=== PATIENT | female | born 1940 | race Caucasian/White ===

== ENCOUNTER → 2019-02-12 | Outpatient (CLI) | payer MEDICARE ==
[~2019-02-12] MED LIST: DIABETES PILL; HTN MED; LORAZEPAM; TRAZODONE
[2019-02-12 17:51] LABS: Color, Urine Yellow (P-Yellow)
[2019-02-12 17:52] LABS: Appearance, Urine Cloudy (Clear); Bacteria Many /hpf; Bilirubin, Urine Neg (Neg); Blood, Urine Neg (Neg); Glucose Qualitative, Urine Neg (Normal); Ketones, Urine Neg (Neg); Leukocyte Esterase, Urine Trace (Neg); Nitrite, Urine Pos (Neg); Protein, Urine Neg (Neg); Red Blood Cells, Urine 0-2 /hpf (0-2); Specific Gravity, Urine 1.015 (1.003-1.022); Squamous Epithelial Cells Many /hpf (Few); Urobilinogen, Urine NORM (Normal)
== END | disposition home or self-care (01) ==
LOC: LAB EV 16:40
PROVIDERS: Nurse Practitioner
DX: R35.1 Nocturia (principal)
CPT/HCPCS: 81001; 87077; 87086; 87186

== ENCOUNTER → 2019-05-13 | Outpatient (CLI) | payer MEDICARE | LOC: LAB EV 13:30 → LAB SHORT 13:30 | DX: R30.9 Painful micturition, unspecified (principal) | CPT/HCPCS: 87077; 87086; 87186 ==

== ENCOUNTER → 2019-09-30 | Outpatient (CLI) | payer MEDICARE ==
[~2019-09-30] MED LIST changes: +ACET500 PO; +ACIDOPHILUS1 EAC3 PO; +ASPI81CH PO; +CALCIUM PO; +GARLIC OIL1000 MG PO; +LISI20 PO; +MAGNESIUM PO; +METF500 PO; +OXYC5 PO; +Vitamin C100 M1 PO; +ZOCOR20 MG PO
[2019-10-01 19:08] LABS: Bilirubin, Urine Neg (Neg); Blood, Urine Neg (Neg); Glucose Qualitative, Urine Neg (Neg); Ketones, Urine Neg (Neg); Leukocyte Esterase, Urine 1+ (Neg); Nitrite, Urine Neg (Neg); Protein, Urine Neg (Neg); Urobilinogen, Urine 1+ (Normal)
[2019-10-01 19:42] LABS: Appearance, Urine Hazy (Clear); Color, Urine Yellow (P-Yellow)
[2019-10-01 19:46] LABS: Bacteria Mod /hpf; Squamous Epithelial Cells Many /hpf (Few)
== END | disposition home or self-care (01) ==
LOC: LAB EV 17:15 → LAB SHORT 10-01 16:03
PROVIDERS: Physician Assistant
DX: R41.82 Altered mental status, unspecified (principal)
CPT/HCPCS: 81001; 87086

== ENCOUNTER 2020-05-01 14:00 | Emergency (ER) | payer MEDICARE, SELFPAY ==
[~2020-05-01] VITALS: Ht 170.2 cm; Wt 89.4 kg
[~2020-05-01 14:00] MED LIST changes: +ASCO500 PO; +Acidophilus1 EAC1 PO; +CEPH500 PO; +ELIQUIS5 MG PO; +GARLIC200 MG PO; +GLUCOPHAGE1000 M1 PO; +MAGNESIUM OXID500 MG PO; -METF500 PO; +TRAZ150T57 PO; +ZESTRIL40 M1 PO; -ZOCOR20 MG PO; +Zocor40 MG PO
[2020-05-01 18:41] LABS: BASOPHILS ABSOLUTE AUTO 0.02 K/mm3 (0.00-0.23); BASOPHILS PERCENT AUTO 0 % (0-2); EOSINOPHILS ABSOLUTE AUTO 0.11 K/mm3 (0.00-0.68); EOSINOPHILS PERCENT AUTO 2 % (0-6); Hematocrit 40.3 % (33.0-51.0); Hemoglobin 12.5 g/dL (11.5-16.0); IMMATURE GRAN ABSOLUTE AUTO 0.04 K/mm3 (0.00-0.10); IMMATURE GRAN PERCENT AUTO 1 % (0-1); LYMPHOCYTES ABSOLUTE AUTO 1.95 K/mm3 (0.84-5.20); LYMPHOCYTES PERCENT AUTO 27 % (21-46); MONOCYTES ABSOLUTE AUTO 0.36 K/mm3 (0.16-1.47); MONOCYTES PERCENT AUTO 5 % (4-13); Mean Corpuscular HGB 28.4 pg (26.0-34.0); Mean Corpuscular Volume 92 fL (80-100); Mean Platelet Volume 10.5 fL (9.1-12.4); NEUTROPHILS ABSOLUTE AUTO 4.79 K/mm3 (1.96-9.15); NEUTROPHILS PERCENT AUTO 66 % (41-73); NRBC ABSOLUTE 0.02 K/mm3 (0.00-0.02); NRBC Auto 0.3 /100 WBC (0.0-0.2); Platelet Count 273 K/mm3 (150-400); RDW Coefficient Variation 18.4 % (11.7-14.2); RDW Standard Deviation 60.8 fL (35.1-46.3); White Blood Cell Count 7.27 K/mm3 (4.00-11.30)
[2020-05-01 19:06] LABS: Alanine Aminotransfer (ALT/SGP 10 U/L (12-78); Albumin, Blood 3.4 g/dL (3.4-5.0); Albumin/Globulin Ratio 0.9 (0.8-1.8); Alk Phos 64 U/L (50-136); Anion Gap 6 mmol/L (6-16); Aspartate Aminotrans (AST/SGOT 13 U/L (12-37); Bilirubin, Total 0.7 mg/dL (0.1-1.0); Blood Urea Nitrogen 27 mg/dL (8-24); CO2, Blood 28 mmol/L (21-32); Calcium, Blood 9.1 mg/dL (8.5-10.1); Chloride, Blood 106 mmol/L (98-108); Globulin, Blood 3.7 g/dL (2.2-4.0); Glomerular Filtration Rate 57 (60-); Glucose, Blood 97 mg/dL (70-99); Potassium, Blood 4.6 mmol/L (3.5-5.5); Sodium, Blood 140 mmol/L (136-145); Total Protein, Blood 7.1 g/dL (6.4-8.2); Troponin I <0.015 ng/mL (0.000-0.040)
[2020-05-01] MEDS ORDERED: CALCIUM PO (19:11)
[2020-05-01] MEDS ORDERED: Colace100 MG PO (19:55)
[2020-05-01] MEDS ORDERED: HYDR1TAB94 PO (19:55)
== END 2020-05-01 20:08 | disposition home or self-care (01) ==
LOC: ER 14:00
PROVIDERS: Emergency Medicine
DX: S32.029A Unspecified fracture of second lumbar vertebra, initial encounter for closed fracture (principal); S30.0XXA Contusion of lower back and pelvis, initial encounter; S70.02XA Contusion of left hip, initial encounter; H11.32 Conjunctival hemorrhage, left eye; I25.2 Old myocardial infarction; M51.36 Other intervertebral disc degeneration, lumbar region; M47.816 Spondylosis without myelopathy or radiculopathy, lumbar region; I50.9 Heart failure, unspecified; Z79.84 Long term (current) use of oral hypoglycemic drugs; Z79.01 Long term (current) use of anticoagulants; Z79.899 Other long term (current) drug therapy; Z86.73 Personal history of transient ischemic attack (TIA), and cerebral infarction without residual deficits; W06.XXXA Fall from bed, initial encounter; Z96.642 Presence of left artificial hip joint
CPT/HCPCS: 36415; 72110; 72131; 73502; 80053; 84484; 85025; 93005; 93010; 99284-25; A9270

== ENCOUNTER 2020-05-15 18:46 | Emergency (ER) | payer MEDICARE ==
[~2020-05-15] VITALS: Ht 170.2 cm; Wt 89.4 kg
[~2020-05-15 18:46] MED LIST changes: +Colace100 MG PO; +HYDR1TAB94 PO
[2020-05-15] MEDS ORDERED: LIDO700A20 TOP (21:50)
== END 2020-05-15 21:59 | disposition home or self-care (01) ==
LOC: ER 18:46
DX: M25.551 Pain in right hip (principal); I50.9 Heart failure, unspecified; I25.2 Old myocardial infarction; Z79.899 Other long term (current) drug therapy; Z79.01 Long term (current) use of anticoagulants; Z79.84 Long term (current) use of oral hypoglycemic drugs; Z86.718 Personal history of other venous thrombosis and embolism
CPT/HCPCS: 73502; 99283-25; A9270

== ENCOUNTER 2020-07-19 16:25 | Emergency (ER) | payer MEDICARE, SELFPAY ==
[~2020-07-19] VITALS: Ht 167.6 cm; Wt 72.6 kg
[~2020-07-19 16:25] MED LIST changes: +LIDO700A20 TOP
[2020-07-19 17:24] LABS: BASOPHILS ABSOLUTE AUTO 0.01 K/mm3 (0.00-0.23); BASOPHILS PERCENT AUTO 0 % (0-2); EOSINOPHILS ABSOLUTE AUTO 0.03 K/mm3 (0.00-0.68); EOSINOPHILS PERCENT AUTO 0 % (0-6); Hematocrit 35.3 % (33.0-51.0); Hemoglobin 11.5 g/dL (11.5-16.0); IMMATURE GRAN ABSOLUTE AUTO 0.05 K/mm3 (0.00-0.10); IMMATURE GRAN PERCENT AUTO 1 % (0-1); LYMPHOCYTES ABSOLUTE AUTO 1.45 K/mm3 (0.84-5.20); LYMPHOCYTES PERCENT AUTO 19 % (21-46); MONOCYTES ABSOLUTE AUTO 0.39 K/mm3 (0.16-1.47); MONOCYTES PERCENT AUTO 5 % (4-13); Mean Corpuscular HGB 33.1 pg (26.0-34.0); Mean Corpuscular HGB Conc 32.6 g/dL (31.5-36.5); Mean Corpuscular Volume 102 fL (80-100); Mean Platelet Volume 10.5 fL (9.1-12.4); NEUTROPHILS ABSOLUTE AUTO 5.82 K/mm3 (1.96-9.15); NEUTROPHILS PERCENT AUTO 75 % (41-73); NRBC ABSOLUTE 0.02 K/mm3 (0.00-0.02); NRBC Auto 0.3 /100 WBC (0.0-0.2); Platelet Count 389 K/mm3 (150-400); RDW Coefficient Variation 19.7 % (11.7-14.2); RDW Standard Deviation 73.7 fL (35.1-46.3); Red Blood Cell Count 3.47 M/mm3 (3.80-5.20); White Blood Cell Count 7.75 K/mm3 (4.00-11.30)
[2020-07-19 17:32] LABS: Albumin/Globulin Ratio 0.8 (0.8-1.8); Bilirubin, Total 0.8 mg/dL (0.1-1.0); Bun/Creatinine Ratio 26.1 (12.0-20.0); Calcium, Blood 9.3 mg/dL (8.5-10.1); Creatinine, Blood 1.11 mg/dL (0.40-1.00); Globulin, Blood 3.8 g/dL (2.2-4.0); Potassium, Blood 4.4 mmol/L (3.5-5.5); Total Protein, Blood 6.8 g/dL (6.4-8.2)
[2020-07-19 17:50] LABS: Creatine Kinase MB 2.3 ng/mL (0.0-3.6)
[2020-07-19 18:07] LABS: Source, Urine Clean Catch
[2020-07-19 18:15] LABS: Appearance, Urine Clear (Clear); Bilirubin, Urine Neg (Neg); Blood, Urine 3+ (Neg); Color, Urine Amber (P-Yellow); Glucose Qualitative, Urine Neg (Neg); Ketones, Urine 2+ (Neg); Leukocyte Esterase, Urine Neg (Neg); Nitrite, Urine Neg (Neg); Protein, Urine 1+ (Neg); Urobilinogen, Urine 1+ (Normal)
[2020-07-19 18:34] LABS: Bacteria Few /hpf; Squamous Epithelial Cells Rare /hpf (Few)
[2020-07-19 18:35] LABS: Amorphous Light (0-Heavy); Transitional Epithelial Cells Rare /hpf (0-Rare)
== END 2020-07-19 20:15 | disposition home or self-care (01) ==
LOC: ER 16:25
PROVIDERS: Physician Assistant
DX: S00.83XA Contusion of other part of head, initial encounter (principal); S40.011A Contusion of right shoulder, initial encounter; M25.552 Pain in left hip; I25.2 Old myocardial infarction; I50.9 Heart failure, unspecified; E78.5 Hyperlipidemia, unspecified; I11.0 Hypertensive heart disease with heart failure; W17.89XA Other fall from one level to another, initial encounter
CPT/HCPCS: 36415; 51701; 70450; 73502; 80053; 81001; 82550; 82553; 85025; 93005; 93010; 99285-25; J7030

== ENCOUNTER → 2021-02-21 | Outpatient (CLI) | payer MEDICARE ==
[2021-02-21 15:53] LABS: Source, Urine Clean Catch
[2021-02-21 16:09] LABS: Appearance, Urine Cloudy (Clear); Color, Urine Yellow (P-Yellow)
[2021-02-21 16:10] LABS: Bacteria Many /hpf; Bilirubin, Urine Neg (Neg); Blood, Urine Trace (Neg); Glucose Qualitative, Urine Neg (Normal); Ketones, Urine Neg (Neg); Leukocyte Esterase, Urine 2+ (Neg); Nitrite, Urine Neg (Neg); Protein, Urine Neg (Neg); Specific Gravity, Urine 1.015 (1.003-1.022); Squamous Epithelial Cells Few /hpf (Few); Urobilinogen, Urine NORM (Normal); White Blood Cells, Urine 25-50 /hpf (0-5)
== END ==
LOC: LAB SHORT 14:30 → LAB 14:30
PROVIDERS: Physician Assistant
DX: R30.9 Painful micturition, unspecified (principal); R35.0 Frequency of micturition
CPT/HCPCS: 81001; 87086

== ENCOUNTER → 2021-03-30 | Outpatient (CLI) | payer MEDICARE | END | disposition home or self-care (01) | LOC: LAB SHORT 15:49 → LAB 15:49 | DX: R35.0 Frequency of micturition (principal) | CPT/HCPCS: 87086 ==

== ENCOUNTER → 2021-06-22 | Outpatient (CLI) | payer MEDICARE ==
[2021-06-22 19:02] LABS: Creatinine, Urine Random 85.3 mg/dL (27.00-270.00); Microalb/Creat Ratio UR, Rand 281.36 mg/g (0.000-30.000)
== END | disposition home or self-care (01) ==
LOC: LAB SHORT 15:30
PROVIDERS: Family Medicine
DX: E11.9 Type 2 diabetes mellitus without complications (principal)
CPT/HCPCS: 82043; 82570

== ENCOUNTER 2022-03-21 12:37 | Inpatient (IN) | payer MEDICARE ==
[~2022-03-21] VITALS: Ht 172.7 cm; Wt 95.0 kg
[~2022-03-21 12:37] MED LIST changes: -LISI20 PO
[2022-03-21 13:40] LABS: Hematocrit 45.2 % (33.0-51.0); Hemoglobin 14.8 g/dL (11.5-16.0); Mean Corpuscular HGB Conc 32.7 g/dL (31.5-36.5); Mean Corpuscular Volume 89 fL (80-100); Mean Platelet Volume 11.6 fL (9.1-12.4); NRBC ABSOLUTE 0.02 K/mm3 (0.00-0.02); NRBC Auto 0.1 /100 WBC (0.0-0.2); Platelet Count 175 K/mm3 (150-400); RDW Coefficient Variation 15.4 % (11.7-14.2); RDW Standard Deviation 49.7 fL (35.1-46.3); White Blood Cell Count 19.73 K/mm3 (4.00-11.30)
[2022-03-21 13:49] LABS: Creatine Kinase MB 43.1 ng/mL (0.0-3.6)
[2022-03-21 13:59] LABS: Albumin, Blood 3.1 g/dL (3.4-5.0); Albumin/Globulin Ratio 0.8 (0.8-1.8); Bilirubin, Total 1.1 mg/dL (0.1-1.0); Bun/Creatinine Ratio 14.6 (12.0-20.0); Calcium, Blood 8.6 mg/dL (8.5-10.1); Creatine Kinase MB Index 0.7 (0.0-4.0); Creatinine, Blood 1.78 mg/dL (0.40-1.00); Globulin, Blood 3.7 g/dL (2.2-4.0); Potassium, Blood 4.4 mmol/L (3.5-5.5); Total Protein, Blood 6.8 g/dL (6.4-8.2)
[2022-03-21 14:19] LABS: Source, Urine Clean Catch
[2022-03-21 14:35] LABS: Appearance, Urine Cloudy (Clear); Blood, Urine 3+ (Neg); Color, Urine Yellow (P-Yellow); Glucose Qualitative, Urine Neg (Neg); Ketones, Urine 2+ (Neg); Leukocyte Esterase, Urine 2+ (Neg); Nitrite, Urine Neg (Neg); Protein, Urine 3+ (Neg); Urobilinogen, Urine 2+ (Normal)
[2022-03-21 14:39] LABS: BAND PERCENT MAN 3 % (0-8); BASOPHILS PERCENT MAN 0 % (0-2); EOSINOPHILS PERCENT MAN 0 % (0-6); LYMPHOCYTES ABSOLUTE MAN 1.38 K/mm3 (0.84-5.20); LYMPHOCYTES PERCENT MAN 7 % (21-46); METAMYELOCYTE ABSOLUTE MAN 0.19 K/mm3 (0.00-0.00); METAMYELOCYTE PERCENT MAN 1 % (0-0); MONOCYTES ABSOLUTE MAN 1.18 K/mm3 (0.16-1.47); MONOCYTES PERCENT MAN 6 % (4-13); NEUTROPHILS ABSOLUTE MAN 16.96 K/mm3 (1.96-9.15); SEG NEUTROPHILS PERCENT MAN 83 % (41-73); TOTAL CELLS COUNTED 100
[2022-03-21 16:19] LABS: Bilirubin, Urine 1+ (Neg)
[2022-03-21] MEDS ORDERED: JANTOVEN5 M2 PO (16:19)
[2022-03-21 16:21] LABS: White Blood Cells, Urine 25-50 /hpf (0-5)
[2022-03-21 16:23] LABS: Bacteria Many /hpf; Squamous Epithelial Cells Rare /hpf (Few)
[2022-03-21 20:28] LABS: International Normalized Ratio 1.94; Prothrombin Time Results 19.5 Sec (9.7-11.5)
[2022-03-21 22:10] LABS: Eosinophils-Raw #,Urine 0
[2022-03-21 22:11] LABS: White Blood Cells Urine 25-50 /hpf (0-5)
--- NOTE | 2022-03-22 03:12 | NUR ---
Patients BP continues to trend down, contacted resident and order for 500ml NS bolus and recheck. Patient neuro status unchanged, still having auditory and visual hallucinations.
--- NOTE | 2022-03-22 05:01 | NUR ---
PATIENTS BP TEMPORARILY RESPONDED TO BOLUS THEN BEGAN TRENDING DOWN WITH MAP IN HIGH 50'S TO LOW 60'S. RESIDENT CONTACTED AND ORDER FOR TRANSFER TO ICU WITH LEVOPHED GTT. NEW 20G IV PLACED IN RAC.
[2022-03-22 05:14] LABS: Albumin, Blood 2.4 g/dL (3.4-5.0); Albumin/Globulin Ratio 0.8 (0.8-1.8); Bilirubin, Total 0.9 mg/dL (0.1-1.0); Bun/Creatinine Ratio 15.8 (12.0-20.0); Calcium, Blood 7.3 mg/dL (8.5-10.1); Creatinine, Blood 2.28 mg/dL (0.40-1.00); Globulin, Blood 3.1 g/dL (2.2-4.0); Potassium, Blood 4.9 mmol/L (3.5-5.5); Total Protein, Blood 5.5 g/dL (6.4-8.2)
[2022-03-22 05:20] LABS: BASOPHILS ABSOLUTE AUTO 0.02 K/mm3 (0.00-0.23); BASOPHILS PERCENT AUTO 0 % (0-2); EOSINOPHILS PERCENT AUTO 0 % (0-6); Hematocrit 36.9 % (33.0-51.0); Hemoglobin 12.4 g/dL (11.5-16.0); IMMATURE GRAN ABSOLUTE AUTO 0.14 K/mm3 (0.00-0.10); IMMATURE GRAN PERCENT AUTO 1 % (0-1); LYMPHOCYTES ABSOLUTE AUTO 1.44 K/mm3 (0.84-5.20); LYMPHOCYTES PERCENT AUTO 10 % (21-46); MONOCYTES ABSOLUTE AUTO 0.84 K/mm3 (0.16-1.47); MONOCYTES PERCENT AUTO 6 % (4-13); Mean Corpuscular HGB 29.4 pg (26.0-34.0); Mean Corpuscular HGB Conc 33.6 g/dL (31.5-36.5); Mean Corpuscular Volume 87 fL (80-100); Mean Platelet Volume 11.4 fL (9.1-12.4); NEUTROPHILS ABSOLUTE AUTO 12.77 K/mm3 (1.96-9.15); NEUTROPHILS PERCENT AUTO 84 % (41-73); Platelet Count 173 K/mm3 (150-400); RDW Coefficient Variation 15.5 % (11.7-14.2); RDW Standard Deviation 48.5 fL (35.1-46.3); Red Blood Cell Count 4.22 M/mm3 (3.80-5.20); White Blood Cell Count 15.21 K/mm3 (4.00-11.30)
[2022-03-22 05:27] LABS: International Normalized Ratio 2.3
--- NOTE | 2022-03-22 05:40 | NUR ---
Assumed care of patient at 2223, A/O to self, location only at admit. This changed slightly during this shift to being only A/O to self and thinking she was "at the fair". Patient is very talkative. Pupils 3mm and sluggish bilaterally. Neuro's intact otherwise. Patient is on 3-5L NC with nonproductive weak cough, LS dim t/o. Patient is NPO until ST eval as patient choked on water in ED and self admits to not feeling safe swallowing. Afib on tele 80-90's, denies CP/pressure. See previous RN notes regarding BP. Levophed started in PCU as patient is ICU status and awaiting bed. BLE 1+ pitting edema, RFA nonpitting edema. Cloudy julian urine in espana. Will report to ICU nurse.
[2022-03-22 05:46] LABS: Prothrombin Time Results 22.9 Sec (9.7-11.5)
--- NOTE | 2022-03-22 06:02 | NUR ---
FAMILY UPDATE CALLED PT'S SON (WALKER) TO UPDATE WITH CHANGE TO ICU STATUS AND TRANSFER TO ICU-01. UPDATED PRIMARY RN SANTIAGO.
--- NOTE | 2022-03-22 09:45 | NUR ---
AM NOTE... ASSUMED CARE OF PT AT 0700 THE PT IS A&O TO SELF ONLY, SHE DOES NOT FOLLOW DIRECTIONS AND IS UNABLE TO FOLLOW CONVERSATION. SHE REFUSES TO FOLLOW DIRECTIONS FOR NEURO CHECKS SUCH HAND MILLED LUMBER GRADER, LEG STRENGTH OR PUPIL SIZE/REACTIONS. SHE WAS ON 1MCG OF LEVOPHED AT THE START OF THIS SHIFT BUT THIS WAS STOPPED D/T IMPROVING MAPS >65. SHE CONTINUES ON 4L NC WITH O2 SATS >90% L/S DIM T/O PT REFUSES TO TAKE DEEP BREATHS AND STOP TALKING DURING ASSESSMENT. BT PRESENT AND HYPOACTIVE, ABD SOFT TO PALPATION. THE PT'S GARCIA IS PATENT AND DRAINING MARIEL CLOUDY URINE TO GRAVITY. THE PT HAS MANY SCRAPES AND BRUISES, PICTURES IN THE CHART. THE PT WAS PLACED IN SOFT WRIST RESTRAINTS D/T ATTEMPTING TO PULL OUT HER GARCIA AND IVs. WILL CONTINUE TO MONITOR.
[2022-03-22 12:41] LABS: International Normalized Ratio 1.4
[2022-03-22 13:20] LABS: Prothrombin Time Results 14.4 Sec (9.7-11.5)
--- NOTE | 2022-03-22 17:58 | NUR ---
SHIFT SUMMARY.... NO ACUTE NEGATIVE CHANGES NOTED THIS SHIFT. THE PT'S O2 HAS BEEN TITRATED OFF TO RA WITH O2 SATS >92%. THE PT CONTINUES TO BE NPO. SHE CONTINUES TO BE VERY CONFUSED AND WILL NOT FOLLOW ANY COMMANDS AND IS NOT RE-DIRECTABLE. THE PT HAS BEEN OFF OF ANY PRESSORS SINCE THE START OF THIS SHIFT. SHE HAS BEEN TURNED Q2 HRS. THE PT'S GARCIA IS PATENT AND DRAINING CLOUDY, FOUL SMELLING MARIEL URINE TO GRAVITY. WILL CONTINUE TO MONTIOR UNTIL REPORT IS GIVEN TO ONCOMING RN.
--- NOTE | 2022-03-22 21:30 | NUR ---
ASSUMED CARE PT IS A&O X1-2. PT IS ABLE TO STATE BIRTHDAY W/ DIFFICULTY AND INTERMITTENTLY FORGETS QUESTIONS THAT SHE HAS ANSWERED. PERLLA, STAYS AWAKE, AND ASKS FREQUENT QUESTIONS. PT IS NOT AWARE OF WHERE SHE IS AT OR WHAT HAPPENED TO HER EVEN WHEN REMINDED. SPO2 >92% ON RA; MAP >65. NO C/O'S OF PAIN UNLESS BEING REPOSITIONED.
[2022-03-23 05:13] LABS: BASOPHILS ABSOLUTE AUTO 0.02 K/mm3 (0.00-0.23); BASOPHILS PERCENT AUTO 0 % (0-2); EOSINOPHILS ABSOLUTE AUTO 0.07 K/mm3 (0.00-0.68); EOSINOPHILS PERCENT AUTO 1 % (0-6); Hematocrit 32.7 % (33.0-51.0); Hemoglobin 10.8 g/dL (11.5-16.0); IMMATURE GRAN ABSOLUTE AUTO 0.22 K/mm3 (0.00-0.10); IMMATURE GRAN PERCENT AUTO 2 % (0-1); LYMPHOCYTES ABSOLUTE AUTO 1.16 K/mm3 (0.84-5.20); LYMPHOCYTES PERCENT AUTO 10 % (21-46); MONOCYTES ABSOLUTE AUTO 0.62 K/mm3 (0.16-1.47); MONOCYTES PERCENT AUTO 6 % (4-13); Mean Corpuscular HGB 29.1 pg (26.0-34.0); Mean Corpuscular Volume 88 fL (80-100); Mean Platelet Volume 10.9 fL (9.1-12.4); NEUTROPHILS ABSOLUTE AUTO 9.17 K/mm3 (1.96-9.15); NEUTROPHILS PERCENT AUTO 81 % (41-73); Platelet Count 182 K/mm3 (150-400); RDW Coefficient Variation 15.8 % (11.7-14.2); RDW Standard Deviation 49.3 fL (35.1-46.3); Red Blood Cell Count 3.71 M/mm3 (3.80-5.20); White Blood Cell Count 11.26 K/mm3 (4.00-11.30)
--- NOTE | 2022-03-23 05:29 | NUR ---
SHIFT SUMMARY PT IS A&O X 1-2. DIFFICULT TO REORIENT AND FORGETFUL ABOUT LOCATION/SITUATION. PT WAS VERY CONVERSATIONAL T/O NIGHT AND DOES NOT COOPERATE W/ CARE VERY WELL. PT'S MOOD IS VERY LABILE W/ OCCASIONAL MOMENTS OF CRYING. LESS SOMNULENT THAN ASSUMED CARE NOTE ASSESSMENT. THERE WAS NO INCREASED CONFUSION OR OBVIOUS DECREASE IN NEURO THIS SHIFT. GARCIA PATENT AND DRAINING TO GRAVITY.
[2022-03-23 05:33] LABS: International Normalized Ratio 1.1; Prothrombin Time Results 11.5 Sec (9.7-11.5)
[2022-03-23 06:09] LABS: Albumin, Blood 2.1 g/dL (3.4-5.0); Anion Gap 7 mmol/L (6-16); Blood Urea Nitrogen 32 mg/dL (8-24); Bun/Creatinine Ratio 30.5 (12.0-20.0); CO2, Blood 22 mmol/L (21-32); Calcium, Blood 6.9 mg/dL (8.5-10.1); Chloride, Blood 116 mmol/L (98-108); Creatinine, Blood 1.05 mg/dL (0.40-1.00); Glomerular Filtration Rate 53 (60-); Glucose, Blood 94 mg/dL (70-99); Magnesium, Blood 1.1 mg/dL (1.6-2.4); Phosphorus, Blood 2.4 mg/dL (2.5-4.9); Sodium, Blood 145 mmol/L (136-145); Vancomycin, Random 7.7 ug/mL
--- NOTE | 2022-03-23 07:00 | NUR ---
ASSUME CARE: I have assumed care of this patient.
--- NOTE | 2022-03-23 11:22 | NUR ---
PROVIDER PHONE CALL: Telephone order do discontinue q1h neuro checks. Will redraw mag and phos levels tomorrow AM.
--- NOTE | 2022-03-23 17:33 | NUR ---
SHIFT/TRANSFER SUMMARY: report given to DUCK OPERATOR. Pt to be taken to PCU 12 from ICU. NEURO: pt alert and confused. she worked with pt to transfer into chair for a short time. RESP: clear/dim on RA CARDS: afib 90-100. very brief periods of bradycardia while sleeping GI/: no BM today. espana draining to gravity. NPO with frequent oral care per pt request. SKIN: no new breakdown noted. Skin very fragile PSYCH/SOCIAL: daughter at bedside throughout the day. pt irritable with care and requires much coaxing with ADLs.
--- NOTE | 2022-03-23 20:57 | NUR ---
ASSUMPTION OF CARE THIS RN ASSUMED CARE OF PATIENT AT 1900. REPORT TAKEN FROM LAURA RN. PATIENT WITH STABLE VITALS AT TIME OF SHIFT CHANGE. AFIB WITH HR 90'S. PATIENT ONLY REPORTING BACK PAIN. MEDICATED PER EMAR. PATIENT ALERT AND ORIENTED FULLY WITH TANGENTIAL SPEECH. PATIENT KOI. REPOSITIONING Q2HRS. CBG CHECKS Q6HRS D/T NPO STATUS. PATIENT TO BE REEVALUATED WITH SPEECH THERAPY IN THE AM REPORTED BY PREVIOUS RN. PATIENT DOES FOLLOW COMMANDS BUT REQUIRES STAFF AND THIS RN TO CONTINUE TO REMIND PATIENT OF THE TASK. PATIENT WITH D5 AND NS INFUSING PER EMAR. SCD'S ON BILATERAL LOWER CALVES. PATIENT IS ABLE TO MAKE NEEDS KNOWN. BED IN LOWEST POSITION AND CALL LIGHT WITHIN REACH.
--- NOTE | 2022-03-24 05:05 | NUR ---
SHIFT SUMMARY PT CONTINUES TO BE ALERT AND ORIENTED X4. CHIGNIK LAGOON. PATIENT BECAME AGITATED WITH THIS RN WHILE PATIENT WAS ATTEMPTING TO GET OUT OF BED AND THREW ORAL SPONGE AT THIS RN. PATIENT BEGAN YELLING AT THIS RN AND OTHER STAFF. NOT REDIRECTABLE, CONTINUING TO TRY TO GET OUT OF BED. MEDICATED PER EMAR. PATIENT PLEASANT AFTER THIS RN RETURNED TO ROOM AFTER 20 MINUTES. VITALS STABLE. DRESSINGS CHANGED AND C/D/I. SCDS IN PLACE. INFUSING D5/NS PER EMAR. CBG CHECKED Q6HRS. REPOSITIONING Q2HRS. EGG CRATE FOAM PLACED ON PATIENT'S MATTRESS. GARCIA CATHETER PATENT AND DRAINING VIA GRAVITY. THIS RN WILL CONTINUE TO MONITOR UNTIL SHIFT CHANGE AT 0700
[2022-03-24 07:36] LABS: Hemoglobin 10.9 g/dL (11.5-16.0)
[2022-03-24 07:37] LABS: Anion Gap 6 mmol/L (6-16); Blood Urea Nitrogen 18 mg/dL (8-24); Bun/Creatinine Ratio 24.6 (12.0-20.0); CO2, Blood 22 mmol/L (21-32); Calcium, Blood 6.7 mg/dL (8.5-10.1); Chloride, Blood 119 mmol/L (98-108); Creatinine, Blood 0.73 mg/dL (0.40-1.00); Glomerular Filtration Rate 82 (60-); Glucose, Blood 107 mg/dL (70-99); Magnesium, Blood 1.3 mg/dL (1.6-2.4); Phosphorus, Blood 1.6 mg/dL (2.5-4.9); Potassium, Blood 3.7 mmol/L (3.5-5.5); Sodium, Blood 147 mmol/L (136-145); Vancomycin, Trough 12.9 ug/mL (5.0-10.0)
--- NOTE | 2022-03-24 18:24 | NUR ---
SHIFT SUMMARY; ASSUMED CARE AT 0700. A/A/OX3 DURING SHIFT. PERIODS OF SWATTING AT STAFF AND YELLING WHEN ATTEMPTING TO REPOSITION. DAUGHTER AT BEDSIDE DURING SHIFT. PT TALKS ALL DAY WITH VERY LITTLE BREAKS IN A CHILDISH DEMENOR APPEARS IN A MANIC TYPE STATE. VERY DIFFICULT TO HAVE CONVERSATIONS WITH DOESN'T STOP TALKING. GARCIA CATH IN PLACE. BRUISES, SCRAPES T/O BODY. YEAST TO BREAST AREA, BILATERAL SCUDS. WORKED WITH PT/OT/ST. CLEARED FOR [facility] SOFT DIET TODAY. EATS SMALL AMOUNT OF FOOD, STATES NOT ENOUGH SALT ON IT. CLINIMIX STARTED AT 50ML/HR TODAY. PUPILS PERRL, ANSWERS QUESTIONS APPROPRIATLY IF CAN GET TO LISTEN TO QUESTIONS. Q2 TURNS, NO ACUTE MEDICAL CHANGES DURING SHIFT.
[2022-03-25 03:27] LABS: BASOPHILS ABSOLUTE AUTO 0.03 K/mm3 (0.00-0.23); BASOPHILS PERCENT AUTO 0 % (0-2); EOSINOPHILS ABSOLUTE AUTO 0.26 K/mm3 (0.00-0.68); EOSINOPHILS PERCENT AUTO 4 % (0-6); Hematocrit 32.7 % (33.0-51.0); Hemoglobin 10.8 g/dL (11.5-16.0); IMMATURE GRAN ABSOLUTE AUTO 0.26 K/mm3 (0.00-0.10); IMMATURE GRAN PERCENT AUTO 4 % (0-1); LYMPHOCYTES ABSOLUTE AUTO 1.16 K/mm3 (0.84-5.20); LYMPHOCYTES PERCENT AUTO 16 % (21-46); MONOCYTES ABSOLUTE AUTO 1.07 K/mm3 (0.16-1.47); MONOCYTES PERCENT AUTO 15 % (4-13); Mean Corpuscular HGB 29.7 pg (26.0-34.0); Mean Corpuscular Volume 90 fL (80-100); NEUTROPHILS ABSOLUTE AUTO 4.52 K/mm3 (1.96-9.15); NEUTROPHILS PERCENT AUTO 62 % (41-73); Platelet Count 165 K/mm3 (150-400); RDW Coefficient Variation 15.9 % (11.7-14.2); RDW Standard Deviation 51.3 fL (35.1-46.3); Red Blood Cell Count 3.64 M/mm3 (3.80-5.20)
[2022-03-25 04:14] LABS: Albumin/Globulin Ratio 0.7 (0.8-1.8); Bilirubin, Total 0.5 mg/dL (0.1-1.0); Bun/Creatinine Ratio 25.4 (12.0-20.0); Calcium, Blood 7.4 mg/dL (8.5-10.1); Creatinine, Blood 0.67 mg/dL (0.40-1.00); Globulin, Blood 2.9 g/dL (2.2-4.0); Magnesium, Blood 1.7 mg/dL (1.6-2.4); Phosphorus, Blood 1.8 mg/dL (2.5-4.9); Potassium, Blood 3.9 mmol/L (3.5-5.5); Total Protein, Blood 4.9 g/dL (6.4-8.2)
--- NOTE | 2022-03-25 05:59 | NUR ---
SHIFT SUMMARY ASSUMED CARE OF PT AT 1900. PT IS ALERT AND ORIENTED BUT VERY TALKATIVE. PT DOES NOT LIKE TO BE INTERUPTED WHEN TELLING A STORY AND WILL TALK OVER NURSE. PT CALLED OUT AND TALKED TO SELF UNTIL SHE SELF SOOTHED TO SLEEP. HEART SOUNDS AFIB. LUNG SOUNDS DIMINISHED AT BASES. PT C/O SOB WHILE BEING CHANGED AND REQUESTED O2. PT REMAINED ON 2L NC WHILE SLEEPING. PT HAD GARCIA DRAINING. PT COMPLAINED ABOUT NOT BEING ABLE TO GET UP THIS EVENING. PT HAS A SMALL OPEN SORE INBETWEEN BUTTOCK. MEPILEX CHANGED AND PT REPOSITIONED TO SIDE. ROBERTO SAW PT AT AROUND 2200, ASKED FOR LABS EARLY AND TO BE CALLED WITH RESULTS. ORDERED MEDS ACCORDINGLY AND CHANGED PT TO MED STATUS WITH TELE.
--- NOTE | 2022-03-25 18:13 | NUR ---
SHIFT SUMMARY; ASSUMED CARE AT 0700, A/A/OX4 DURING SHIFT. CONTINUES TO YELL OUT AND SWAT AT STAFF WITH CARE. BOUNDARIES GIVEN TO PT REGARDING TREATMENT OF STAFF. PT YELLS AT THIS RN THAT I DO NOT CARE ABOUT HER. DAUGHTERS AT BEDSIDE AND STATE PT APPEARS TO BE AT HER BASELINE, STATES SHE HAS "BEEN THIS WAY HER WHOLE LIFE". MULTIPLE BRUISES IN DIFFERENT STAGES OF HEALING THROUGHOUT BODY. MEPILEX ON COCCYX FOR PREVENTATIVE, SCDS BILATERALLY, GARCIA IN PLACE DRAINING CLEAR YELLOW URINE. BED BATH AND LINWOOD CARE TODAY. YEAST UNDER BREASTS AND PANUS, DIFFICULT TO ASSESS DUE TO TALKING OVER NURSE AND DOCTORS, DOES NOT APPEAR TO HEAR QUESTIONS ASKED WON'T STOP TALKING. MOVES ARMS BILATERALLY, LEGS WEAK AND DOESN'T APPEAR TO TRY AND MOVE THEM. VSS, NO ACUTE MEDICAL CHANGES, WILL CONTINUE TO MONITOR AND TREAT UNTIL CHANGE OF SHIFT.
--- NOTE | 2022-03-25 20:31 | NUR ---
THIS RN GIVES REPORT TO MED FLOOR RN.
[2022-03-26] MEDS ORDERED: Oxybutynin Chlo15 MG PO (00:15)
--- NOTE | 2022-03-26 05:12 | NUR ---
PATIENT ARRIVED ON UNIT FROM PCU AT 2105 ON 01/23/23. PATIENT ALERT BUT COMBATIVE WITH STAFF. REARED FIST IF SHE WAS GOING TO [facility]CH [place] F[facility]IS. WORDS MUMBLED, TALKATIVE, AND GARBLED AT TIMES. PATIENT MENTATION WAXES AND WANES. PATIENT ASKED ME TO REWRITE HER NAME ON THE BOARD BECAUSE SHE DID NOT LIKE MY PENMONSHIP, I EXPLAINED THAT WAS THE BEST I COULD DO AND THEN SHE CONTINUOUSLY INSULTED ME IN A MANNER OF ANGER. PATIENT MEDICATED FOR AGITATION PER EMAR. PATIENT CAME WITH ALL BELONGINS AND BELONGINGS WERE UNPACKED FOR PATIENT. PATIENT ALERT, CONFUSED, TALKS NONSENSICALLY, RAMBLES, MUMBLES, ROOM AIR, BEDBOUND, BRUSING AND SCABS ALL OVER BODY, AFIB CONTROLLED ON TELE, GARCIA CATHETER, BEDPAN FOR BM, NICK POWERGLIDE FLUSHED AND SALINE LOCKED. PATIENT SLEPT WELL THROUGH SHIFT.
[2022-03-26 05:20] LABS: BASOPHILS ABSOLUTE AUTO 0.04 K/mm3 (0.00-0.23); BASOPHILS PERCENT AUTO 1 % (0-2); EOSINOPHILS ABSOLUTE AUTO 0.24 K/mm3 (0.00-0.68); EOSINOPHILS PERCENT AUTO 4 % (0-6); Hematocrit 33.2 % (33.0-51.0); Hemoglobin 10.9 g/dL (11.5-16.0); IMMATURE GRAN ABSOLUTE AUTO 0.28 K/mm3 (0.00-0.10); IMMATURE GRAN PERCENT AUTO 4 % (0-1); LYMPHOCYTES ABSOLUTE AUTO 1.34 K/mm3 (0.84-5.20); LYMPHOCYTES PERCENT AUTO 21 % (21-46); MONOCYTES ABSOLUTE AUTO 1.01 K/mm3 (0.16-1.47); MONOCYTES PERCENT AUTO 16 % (4-13); Mean Corpuscular HGB 29.5 pg (26.0-34.0); Mean Corpuscular HGB Conc 32.8 g/dL (31.5-36.5); Mean Corpuscular Volume 90 fL (80-100); Mean Platelet Volume 11.1 fL (9.1-12.4); NEUTROPHILS ABSOLUTE AUTO 3.54 K/mm3 (1.96-9.15); NEUTROPHILS PERCENT AUTO 55 % (41-73); Platelet Count 198 K/mm3 (150-400); RDW Coefficient Variation 15.9 % (11.7-14.2); RDW Standard Deviation 51.1 fL (35.1-46.3); Red Blood Cell Count 3.69 M/mm3 (3.80-5.20); White Blood Cell Count 6.45 K/mm3 (4.00-11.30)
[2022-03-26 05:55] LABS: Albumin/Globulin Ratio 0.7 (0.8-1.8); Bilirubin, Total 0.5 mg/dL (0.1-1.0); Bun/Creatinine Ratio 24.1 (12.0-20.0); Calcium, Blood 7.9 mg/dL (8.5-10.1); Creatinine, Blood 0.75 mg/dL (0.40-1.00); Magnesium, Blood 1.5 mg/dL (1.6-2.4); Phosphorus, Blood 2.2 mg/dL (2.5-4.9); Potassium, Blood 4.2 mmol/L (3.5-5.5)
--- NOTE | 2022-03-26 18:23 | NUR ---
SHIFT SUMMARY: PATIENT WAS LETHARGIC BEGINNING OF SHIFT. RESPONDS TO VERBAL STIMULI. PATIENT HAD SLEPT FOR MOST OF THE DAY AND WOKE UP AROUND 1400. CALM, PLEASANT, AND COOPERATIVE c CARE. Q2 TURN. GARCIA PATENT DRAINING c YELLOW URINE TO GRAVITY. ATTENDS CHANGED AND CATHCARE DONE. VITAL SIGNS REVIEWED. PATIENT RECEIVED OT DOSE OF IV SODIUM PHOS AND OT IV LASIX THIS SHIFT. PATIENT DAUGHTER MILTON VELAZCO IS REQUESTING PATIENT REHAB PLACEMENT IN [place]. REASSURE DAUGHTER THIS RN TO PASS THIS REQUEST TO THE REST OF HEALTHCARE TEAM. DAUGHTER LISTED 3 SKILLED FACILITY CLOSES TO WERE THE DAUGHTER LIVE. THE LIST WAS IN FRONT OF PATIENT CHART. CALL LIGHT IN REACH.
[2022-03-26 19:08] LABS: THROMBIN TIME 17.1 sec (0.0-23.0)
[2022-03-27 05:11] LABS: Hematocrit 33.8 % (33.0-51.0); Hemoglobin 11.1 g/dL (11.5-16.0)
--- NOTE | 2022-03-27 06:34 | NUR ---
DR MEJIA GAVE VERBAL ORDER FOR 20 MG PO LASIX QD
--- NOTE | 2022-03-27 06:36 | NUR ---
PATIENT RESTING IN BED
[2022-03-27 06:43] LABS: Magnesium, Blood 1.2 mg/dL (1.6-2.4)
[2022-03-27 06:50] LABS: Anion Gap 5 mmol/L (6-16); Blood Urea Nitrogen 19 mg/dL (8-24); Bun/Creatinine Ratio 24.4 (12.0-20.0); CO2, Blood 26 mmol/L (21-32); Chloride, Blood 110 mmol/L (98-108); Creatinine, Blood 0.78 mg/dL (0.40-1.00); Glomerular Filtration Rate 76 (60-); Glucose, Blood 99 mg/dL (70-99); Phosphorus, Blood 2.5 mg/dL (2.5-4.9); Sodium, Blood 141 mmol/L (136-145)
--- NOTE | 2022-03-28 04:40 | NUR ---
Shift Summary Pt AOx3-4, speaks slow and sometimes mumbled when tired. Can be very demanding, including interrupting care so she can speak for a long time. Turning is painful and frustrating for pt who gets angry and combatitive with staff. Q6 blood sugars fall in the 90-99 range. Briones patent and draining to gravity, used bed dukes for BM. Slept well t/o the night, VSS.
[2022-03-28 08:36] LABS: Hematocrit 35.8 % (33.0-51.0); Hemoglobin 11.6 g/dL (11.5-16.0)
[2022-03-28 09:01] LABS: Anion Gap 4 mmol/L (6-16); Blood Urea Nitrogen 20 mg/dL (8-24); Bun/Creatinine Ratio 24.1 (12.0-20.0); CO2, Blood 28 mmol/L (21-32); Calcium, Blood 8.1 mg/dL (8.5-10.1); Chloride, Blood 107 mmol/L (98-108); Creatinine, Blood 0.83 mg/dL (0.40-1.00); Glomerular Filtration Rate 70 (60-); Glucose, Blood 96 mg/dL (70-99); Magnesium, Blood 1.4 mg/dL (1.6-2.4); Phosphorus, Blood 3.2 mg/dL (2.5-4.9); Potassium, Blood 3.8 mmol/L (3.5-5.5); Sodium, Blood 139 mmol/L (136-145)
[2022-03-28] MEDS ORDERED: ACET325 PO (12:45)
[2022-03-28] MEDS ORDERED: QUET25 PO ×2 (12:46)
[2022-03-28] MEDS ORDERED: FURO20 PO (12:46)
[2022-03-28 14:45] LABS: Influenza A, PCR NEGATIVE (NEGATIVE); Influenza B, PCR NEGATIVE (NEGATIVE); Resp Syncytial Virus, PCR NEGATIVE (NEGATIVE); SARS-Cov-2 (COVID-19) PCR, MMC NEGATIVE (NEGATIVE)
--- NOTE | 2022-03-28 16:31 | NUR ---
Received bedside report from ongoing nurse. Pt slept well over night. Pt asleep in the bed. Pt is very demanding today. Pt did not want speech therapy, occupational therapy to help today. Pt is alert to self and can answer some yes and no question, but gets very distracted. Pt accepted to nursing facility in [place].
--- NOTE | 2022-03-29 03:55 | NUR ---
SHIFT SUMMARY PT ASLEEP OFF AND ON ALL NIGHT. PT WAKES UP AND STS THAT SHE HAS NOT BEEN SLEEPING AND THAT SHE CANNOT GET COMFORTABLE. PT GIVEN HER NIGHT MEDS LATE BECAUSE SHE WAS SLEEPING AND WOULD NOT STAY AWAKE TO TAKE THEM. PT DOES NOT BELIEVE THAT SHE HAS BEEN SLEEPING UNTIL YOU TELL HER SHE WAS SNORING AND THEN SHE IS OK WITH IT.
--- NOTE | 2022-03-29 04:04 | NUR ---
SHIFT SUMMARY NO CHANGES TO PT CONDITION. PT TO BE DISCHARGED TO SON THIS AM AROUND 0800. SON IS TAKING HER TO A SNF IN [place], WHERE SHE WILL LIVE. PT HAS BEEN MOSTLY PLEASANT IN OUR INTERACTIONS THIS SHIFT. PT DOES BECOME A LITTLE IRRITABLE WHEN WOKEN UP FROM SLEEP. PT SLEPT MOST OF SHIFT TONIGHT.
[2022-03-29 07:13] LABS: Anion Gap 2 mmol/L (6-16); Blood Urea Nitrogen 19 mg/dL (8-24); Bun/Creatinine Ratio 22.5 (12.0-20.0); CO2, Blood 32 mmol/L (21-32); Calcium, Blood 8.1 mg/dL (8.5-10.1); Chloride, Blood 104 mmol/L (98-108); Creatinine, Blood 0.84 mg/dL (0.40-1.00); Glomerular Filtration Rate 69 (60-); Glucose, Blood 102 mg/dL (70-99); Magnesium, Blood 1.3 mg/dL (1.6-2.4); Phosphorus, Blood 3.1 mg/dL (2.5-4.9); Potassium, Blood 3.9 mmol/L (3.5-5.5); Sodium, Blood 138 mmol/L (136-145)
--- NOTE | 2022-03-29 15:39 | NUR ---
CALLED DR MONTGOMERY- PT HAD LOW BP ON EVENING VITALS. RECHECKED AND VITALS SEEMED TO BE MORE LIKE THE PT BASELINE. CALLED DR MONTGOMERY ABOUT THE BP. PT HAD A SECOND EPISODE OF LIQUID STOOLS, UNABLE TO COLLECT SAMPLE THE ATTENDS ABSSORBED ALL THE STOOL. IS AWARE AND WILL ORDER A STOOL SAMPLE. PLAN IS TO ORDER AN MRI AT THIS TIME. PT IS NO LONGER GOING TO DC TO A FACILITY IN [place] D/T WEATHER CONDITIONS THE TRANSPORT COMPANY CAN NOT TAKE THE PT.
--- NOTE | 2022-03-29 20:06 | NUR ---
SHIFT SUMMARY- PT ALERT TO SELF AND FAMILY. NONSENSICAL PRESSURED SPEECH WWHEN AWAKE. PT IS A LIFT PT, SHE IS A 2P MAX ASSIST FOR ROLL AND CHANGE. PT HAD TWO INCONTINENT LIQUID STOOLS TODAY STOOL SAMPLE ORDERED UNABLE TO COLLECT YET. MRI SCREENING FORM COMPLETED. PLAN IS FOR MRI TOMORROW MORNING. SPOKE TO DR MONTGOMERY ABOUT PT CODE STATUS, SHE WILL CONSULT PALLIATIVE CARE TOMORROW AND HAVE A CONVERSATION WITH THE FAMILY REGUARDING GOALS OF CARE. PT REMAINS A FULL CODE AT THIS TIME BUT THEY WILL VISIT CODE STATUS DURING THE CONVERSATION TOMORROW WITH FAMILY.
[2022-03-30 05:05] LABS: Hemoglobin 11.2 g/dL (11.5-16.0)
[2022-03-30 05:51] LABS: Iron Serum 33 ug/dL (50-170); Magnesium, Blood 1.3 mg/dL (1.6-2.4); Percent Saturation 13.4 % (15.0-50.0); Total Iron Binding Capacity 247 ug/dL (250-450)
--- NOTE | 2022-03-30 06:33 | NUR ---
ALERT TO SELF. IRRITABLE. METLAKATLA. C/O BACK PAIN; PRN TRAMADOL GIVEN; SLEEPING AND APPEARS COMFORTABLE AT REASSESSMENT. SL POWERGLIDE LUE DRESSINGS TO RLE, BILAT HEELS (PREVENTATIVE), AND L FOOT CDI (CHANGED 03/29/22 PER DAY RN REPORT). MEPILEX DRSG PLACED ON REDDENED COCCYX; REMOVED D/T FREQUENT LIQUID STOOLS. LIFT FOR TRANSFERS. APPROX Q2 TURN; 2X ASSIST. LIQUID INC BMS (UNABLE TO COLLECT SAMPLE). GARCIA PATENT; CATH CARE COMPLETED. MRI FORM WAS FAXED AND IN THE FRONT OF PATIENT'S CHART SON AT BEDSIDE AT SHIFT START; NO QUESTIONS. PLAN TO DC VIA MED[place]. CONTACT ISOLATION PRECATIONS FOR GI PANEL / RULE OUT. SLEEP PROMOTED. CALL LIGHT IN REACH; ENCOURAGED TO MAKE NEEDS KNOWN. BED ALARM SET.
[2022-03-30 06:52] LABS: Anion Gap 4 mmol/L (6-16); Blood Urea Nitrogen 24 mg/dL (8-24); Bun/Creatinine Ratio 26.7 (12.0-20.0); CO2, Blood 30 mmol/L (21-32); Calcium, Blood 8.3 mg/dL (8.5-10.1); Chloride, Blood 104 mmol/L (98-108); Ferritin, Serum 192 ng/mL (8-252); Glomerular Filtration Rate 64 (60-); Glucose, Blood 98 mg/dL (70-99); Potassium, Blood 3.3 mmol/L (3.5-5.5); Sodium, Blood 138 mmol/L (136-145)
[2022-03-30 14:30] LABS: Adenovirus F 40/41 Not Detected (NOT DETECT); Astrovirus Not Detected (NOT DETECT); Campylobacter Sp Not Detected (NOT DETECT); Cryptosporidium Not Detected (NOT DETECT); Cyclospora Cayetanensis Not Detected (NOT DETECT); E. Coli O157 Not Detected (NOT DETECT); Entamoeba Histolytica Not Detected (NOT DETECT); Enteroaggregative E. coli-EAEC Not Detected (NOT DETECT); Enteropathogenic E. coli-EPEC Not Detected (NOT DETECT); Enterotoxigenic E. coli-ETEC Not Detected (NOT DETECT); Giardia Lamblia Not Detected (NOT DETECT); Norovirus GI/GII Not Detected (NOT DETECT); Plesiomonas Shigelloides Not Detected (NOT DETECT); Rotavirus A Not Detected (NOT DETECT); Salmonella Sp Not Detected (NOT DETECT); Sapovirus Not Detected (NOT DETECT); Shiga Toxin-prod E. coli-STEC Not Detected (NOT DETECT); Shigella/Enteroin E. coli-EIEC Not Detected (NOT DETECT); Vibrio Cholerae Not Detected (NOT DETECT); Vibrio Sp Not Detected (NOT DETECT); Yersinia Enterocolitica Not Detected (NOT DETECT)
--- NOTE | 2022-03-30 17:41 | NUR ---
SHIFT SUMMARY PT A&OX2-3 AND IN PLEASENT MOOD T/O SHIFT. SON IN TO SEE PT T/O SHIFT. PT TOLERATING PO INTAKE WELL. CALL LIGHT W/ IN REACH. RECTAL TUBE PLACED THIS SHIFT, DRAINING TO GRAVITY. GARCIA IN PLACE DRAINING TO GRAVITY. VIT B12 IM SHOT INITIATED THIS SHIFT. IRON, K+, AND MAG REPLACED THIS SHIFT. PLANNED TRANSPORT 0900 TOMORROW, SACK LUNCH, SCHEDULED MEDS AND PAIN MED TO BE GIVEN PRIOR TO DC. CALL LIGHT W/IN REACH. WORKED W/ ST AND PT THIS SHIFT.
--- NOTE | 2022-03-31 03:53 | NUR ---
SHIFT SUMMARY NOC PT A/O TO SELF, SON, PLACE, AND . PT HAD C/O OF PN IN BUTTOCKS AND WAS MEDICATED PER EMAR. PT HAS GARCIA IN PLACE DRAINING YELLOW URINE TO GRAVITY. RECTAL TUBE ALSO IN PLACE DRAINING BROWN LIQUID STOOL TO GRAVITY. PT HAS PG IN NICK THAT FLUSHES BUT DOES NOT DRAW. PT DRESSINGS C/D/I. DRESSING ON LFA WAS REAPPLIED BECAUSE PT HAD C/O DRESSING SLIPPING DOWN WRIST. PT IS SCHEDULED TO D/C AT 0900. AM RX NEEDS TO BE GIVEN PRIOR TO TRANSPORT. SACK LUNCH PROVIDED BY [facility]. [facility] [employer] [facility] WILL BE TRANSPORTING PT TO [facility] IN [place]. PT IS CURRENTLY RESTING WITH BED RAILS UP, BED IN LOWEST POSITION, AND CALL LIGHT WITHIN REACH. TM.
[2022-03-31 06:20] LABS: Albumin, Blood 2.1 g/dL (3.4-5.0); Anion Gap 5 mmol/L (6-16); Blood Urea Nitrogen 27 mg/dL (8-24); Bun/Creatinine Ratio 31.8 (12.0-20.0); CO2, Blood 30 mmol/L (21-32); Calcium, Blood 8.3 mg/dL (8.5-10.1); Chloride, Blood 104 mmol/L (98-108); Creatinine, Blood 0.85 mg/dL (0.40-1.00); Glomerular Filtration Rate 68 (60-); Glucose, Blood 102 mg/dL (70-99); Magnesium, Blood 1.5 mg/dL (1.6-2.4); Phosphorus, Blood 2.6 mg/dL (2.5-4.9); Potassium, Blood 3.4 mmol/L (3.5-5.5); Sodium, Blood 139 mmol/L (136-145)
--- NOTE | 2022-03-31 10:32 | NUR ---
PT THIS AM THE PT WAS AWAKE AND ALERT SPEAKING CLEARLT HER SON WAS AT THE BEDSIDE PT WAS MADE READY FOR DISCHARGE. AT THE TIME OF TRANSFER THE PT WAS ASLEEP AND NOT EASILY AROUSED., THE PT WAS EVENTUALY ABLE TO OPEN HER EYES BUT WAS STILL VERY LETHARGIC. A CALL WAS MADE TO DR. PINEDO HE ASKED TO POST PONE TRANSFER AT THAT TIME. THE PT IS NOW MORE RESPONSIVE, HOWEER RECHECK OF HER VS SHOWED BP 78/57 ANOUTHER CALL WAS MADE TO A BOLUS WAS ORDERED. ASKED THAT THE TRANSPORT STAY UNTIL THE BOLUS WAS GIVEN AND THAT THE PT MAY STILL BE ABLE TO TRANSFER THIS AM
--- NOTE | 2022-03-31 10:40 | NUR ---
Initial [facility] Care consult for goals of care conversation. Visit with son at bedside. He is anxious due to his mom's somnolence and pending transfer to a [place] facility in [place] where pt will be near his sister. Pt is somnolent and not participatory in our conversation. I introduced myself and reason for my visit per 's request to review goals of care, code status and advanced care planning. Pt had been living at home, reluctant to seek more supportive living arrangements, prior to admission after being found down at home due to fall and subdural hematoma. She has significant comorbidities of Afib, CAD, CHF, recurrent UTIs, HTN, HLD, OA, AAA repair previously, DM, SHARON, morbid obesity at age 81. She is currently a full code and cognitively impaired to the point that physician does not feel she is a reliable decision maker for medical decisions at this time. Due to other pressing issues, Son and I did not complete a POLST and he did not state any desired change in her current code status or goals of care. I reviewed burden vs beneifits of life sustaining treatments and rescusitative efforts. I gave him some literature to read further to generate questions and start applying information to his mom's current health status and quality of life, with her future medical providers. Booklet, "hard choices for loving people" provided as well as our contact #. I invited him or his siblings to call with any questions or desire for discussion after reading the provided information. I strongly encouraged them to complete an advanced directive and name a proxy medical decision maker and an alternate proxy with their mom's input as soon as that was feasible. Son appreciative of visit and information. Staff in room readying pt for transfer.
--- NOTE | 2022-03-31 19:22 | NUR ---
SHIFT SUMMARY- PT IS DROWSY AND ORIENTED TO SELF AND SURROUNDINGS. PT IS ON BEDREST WITH A GARCIA AND A RECTAL TUBE. PLAN TO TRANSFER PT TO [facility] IN [place] TOMORROW MORNING. TRANSFER WAS PLANNED FOR TODAY BUT CANCELLED DUE TO PT HAVING A DECREASE IN BLOOD PRESURE AND ALTERED LOC. SEE ORDERS. PT BLOOD PRESSURE HAS RECOVERED AND LOC BACK TO BASELINE. PT SEAMS TO BE DROWSY BUT RESPONSIVE TO STAFF. BED IS IN THE LOWEST POSITION AND THE CALL LIGHT IS IN REACH.
[2022-04-01 01:15] LABS: SARS-Cov-2 (COVID-19) PCR, MMC NEGATIVE (NEGATIVE)
--- NOTE | 2022-04-01 03:44 | NUR ---
SHIFT SUMMARY NOC PT A/O TO SELF, SON, . PT BP STARTED TO DROP AGAIN AND IV MAINT FLUIDS ORDERED TO MAINTAIN ACCEPTABLE BP FOR DC TO [facility] IN [place] @ 0900 04/01/22. PT HAS RECTAL TUBE IN PLACE DRAINING LIQUID STOOL TO GRAVITY. GARCIA IN PLACE DRAINING YELLOW URINE TO GRAVITY. PT WAS ACTING MORE PECULIAR THAN BASELINE AND PRN CBG PERFORMED AND GLUCOSE WAS WNL. PT RETURNED TO BASELINE AND HAD C/O OF BEING SLEEPY. PT AM RX IS TO BE GIVEN PRIOR TO PT DC. PT COVID-19 TEST CAME BACK NEGATIVE. PHONE NUMBER FOR LAW WRITER AT [facility] IS ON FRONT OF PT CHART WELL PHYSICIAN LETTER FOR TRANSFER AND DC INSTRUCTIONS. PT IS EAGER TO LEAVE HOSPITAL TO BE CLOSER TO FAMILY. PT IS CURRENTLY RESTING WITH BED IN LOWEST POSITION AND CALL LIGHT WITHIN REACH.
[2022-04-01 05:17] LABS: BASOPHILS ABSOLUTE AUTO 0.06 K/mm3 (0.00-0.23); BASOPHILS PERCENT AUTO 1 % (0-2); EOSINOPHILS ABSOLUTE AUTO 0.21 K/mm3 (0.00-0.68); EOSINOPHILS PERCENT AUTO 2 % (0-6); Hematocrit 34.6 % (33.0-51.0); Hemoglobin 11.3 g/dL (11.5-16.0); IMMATURE GRAN ABSOLUTE AUTO 0.26 K/mm3 (0.00-0.10); IMMATURE GRAN PERCENT AUTO 2 % (0-1); LYMPHOCYTES ABSOLUTE AUTO 1.88 K/mm3 (0.84-5.20); LYMPHOCYTES PERCENT AUTO 15 % (21-46); MONOCYTES ABSOLUTE AUTO 1.42 K/mm3 (0.16-1.47); MONOCYTES PERCENT AUTO 11 % (4-13); Mean Corpuscular HGB 29.3 pg (26.0-34.0); Mean Corpuscular HGB Conc 32.7 g/dL (31.5-36.5); Mean Corpuscular Volume 90 fL (80-100); Mean Platelet Volume 11.3 fL (9.1-12.4); NEUTROPHILS ABSOLUTE AUTO 9.13 K/mm3 (1.96-9.15); NEUTROPHILS PERCENT AUTO 70 % (41-73); Platelet Count 353 K/mm3 (150-400); RDW Coefficient Variation 15.5 % (11.7-14.2); RDW Standard Deviation 50.4 fL (35.1-46.3); Red Blood Cell Count 3.86 M/mm3 (3.80-5.20); White Blood Cell Count 12.96 K/mm3 (4.00-11.30)
[2022-04-01 05:56] LABS: Albumin, Blood 2.1 g/dL (3.4-5.0); Albumin/Globulin Ratio 0.6 (0.8-1.8); Bilirubin, Total 0.6 mg/dL (0.1-1.0); Bun/Creatinine Ratio 33.2 (12.0-20.0); Calcium, Blood 8.2 mg/dL (8.5-10.1); Creatinine, Blood 0.78 mg/dL (0.40-1.00); Globulin, Blood 3.5 g/dL (2.2-4.0); Magnesium, Blood 1.6 mg/dL (1.6-2.4); Phosphorus, Blood 2.5 mg/dL (2.5-4.9); Potassium, Blood 3.4 mmol/L (3.5-5.5); Total Protein, Blood 5.6 g/dL (6.4-8.2)
--- NOTE | 2022-04-01 09:27 | NUR ---
DISCHARGE SUMMARY PATIENT IS ALERT BUT NOT ORIENTED. PATIENT HAS HAD NO ACUTE EVENTS THIS SHIFT. PATIENT IS BEING PICKED UP BY TRANSPORT. PATIENTS SON WAS AT BEDSIDE AT PICKUP.
== END 2022-04-01 09:26 | DRG 82 ==
LOC: ER 12:37 → ICUE 17:43 → ERHOLD 17:43 → PCU 22:25 → ICUE 03-22 05:55 → PCU 03-23 17:44 → MEDS 03-25 21:00 → ENPENDDIS 03-29 09:53 → MEDS 03-29 10:57
PROVIDERS: Family Medicine; Internal Medicine; Internal Medicine Nephrology; Physician Assistant; ADMIT Hospitalist
DX: S06.5XAA Traumatic subdural hemorrhage with loss of consciousness status unknown, initial encounter (principal); G92.9 Unspecified toxic encephalopathy; N17.9 Acute kidney failure, unspecified; R78.81 Bacteremia; N39.0 Urinary tract infection, site not specified; J84.9 Interstitial pulmonary disease, unspecified; M62.82 Rhabdomyolysis; I13.0 Hypertensive heart and chronic kidney disease with heart failure and stage 1 through stage 4 chronic kidney disease, or unspecified chronic kidney disease; E87.20 Acidosis, unspecified; I48.20 Chronic atrial fibrillation, unspecified; E87.0 Hyperosmolality and hypernatremia; E44.0 Moderate protein-calorie malnutrition; Z51.5 Encounter for palliative care; G47.33 Obstructive sleep apnea (adult) (pediatric); E78.5 Hyperlipidemia, unspecified; R94.5 Abnormal results of liver function studies; E11.22 Type 2 diabetes mellitus with diabetic chronic kidney disease; I25.10 Atherosclerotic heart disease of native coronary artery without angina pectoris; N18.9 Chronic kidney disease, unspecified; E83.39 Other disorders of phosphorus metabolism; E86.9 Volume depletion, unspecified; N32.81 Overactive bladder; D63.1 Anemia in chronic kidney disease; R74.01 Elevation of levels of liver transaminase levels; E83.42 Hypomagnesemia; E88.09 Other disorders of plasma-protein metabolism, not elsewhere classified; R19.7 Diarrhea, unspecified; E87.6 Hypokalemia; I95.9 Hypotension, unspecified; I50.9 Heart failure, unspecified; M19.90 Unspecified osteoarthritis, unspecified site; F32.A Depression, unspecified; E66.01 Morbid (severe) obesity due to excess calories; B95.5 Unspecified streptococcus as the cause of diseases classified elsewhere; W18.30XA Fall on same level, unspecified, initial encounter; Z96.642 Presence of left artificial hip joint; Z20.822 Contact with and (suspected) exposure to COVID-19; Z68.38 Body mass index [BMI] 38.0-38.9, adult; I25.2 Old myocardial infarction; Z79.01 Long term (current) use of anticoagulants; Z86.711 Personal history of pulmonary embolism; Z86.718 Personal history of other venous thrombosis and embolism; Z79.899 Other long term (current) drug therapy; Z79.84 Long term (current) use of oral hypoglycemic drugs; Z79.811 Long term (current) use of aromatase inhibitors; Z79.891 Long term (current) use of opiate analgesic; Z79.2 Long term (current) use of antibiotics; Z98.890 Other specified postprocedural states; Z79.4 Long term (current) use of insulin
CPT/HCPCS: 0241U; 36415; 51701; 51702; 70450; 71045; 72125; 76770; 80053; 80069; 80202; 81001; 82436; 82550; 82553; 82607; 82728; 82746; 82947; 83540; 83550; 83605; 83735; 83880; 84100; 84295; 84300; 84443; 85014; 85018; 85025; 85610; 85670; 87040; 87086; 87205; 87507; 92526; 92610; 93005; 93010; 93306; 94760; 94762; 96365-59; 96375-59; 97110; 97129; 97130; 97163; 97166; 97530; 97535; 99285-25; A9270; C1751; J0456; J0696; J1940; J2060; J2916; J3370; J3420; J3430; J3475; J3480; J7030; J7040; J7042; J7050; J7060; J7120; J7168; U0004